=== PATIENT | female | born 1985 | race Caucasian/White ===

== ENCOUNTER 2019-03-31 12:35 | Emergency (ER) | payer OTHER, BC, SELFPAY ==
[2019-03-31 12:39] VITALS: BP 163/101; PULSE 101; RESP 16; TEMP 36.8; O2SAT 97
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
[2019-03-31] MEDS: Acetaminophen 500 MG TAB 1000 MG PO (13:02)
[2019-03-31] MEDS: Ibuprofen 800 MG TAB PO (13:02)
[2019-03-31 14:05] VITALS: BP 163/101; PULSE 101; RESP 16; TEMP 36.8; O2SAT 97
== END 2019-03-31 14:07 | disposition home or self-care (01) ==
PROVIDERS: Emergency Provider Student in an Organized Health Care Education/Training Program; PCP Nurse Practitioner Family
DX: S00.83XA Contusion of other part of head, initial encounter (principal); S46.811A Strain of other muscles, fascia and tendons at shoulder and upper arm level, right arm, initial encounter; V47.5XXA Car driver injured in collision with fixed or stationary object in traffic accident, initial encounter
CPT/HCPCS: 99284; 70450; 71046; 73030